=== PATIENT | female | born 1990 | race Caucasian/White ===

== ENCOUNTER → 2020-05-31 10:56 | Outpatient (CLI) | payer OTHER, SELFPAY ==
--- NOTE | ~2020-05-31 | XR_ITS ---
XR foot LT min 3V DATE: 05/31/2020 11:42 INDICATION: Left foot pain TECHNIQUE: 4 views COMPARISON: None FINDINGS: Pes planus. Plantar calcaneal enthesopathy. Os tibiale externum, normal variant. There is mild osteoarthritis at the first metatarsophalangeal joint. No fracture or dislocation, periosteal reaction or bone destruction. No erosive change is evident. IMPRESSION: Pes planus Osteoarthritis at first metatarsophalangeal joint Plantar calcaneal enthesopathy Reviewed, dictated and finalized at location A.
== END ==
PROVIDERS: PCP Family Medicine; Visit Provider Family Medicine
DX: M79.672 Pain in left foot (principal); Q66.89 Other specified congenital deformities of feet; M21.42 Flat foot [pes planus] (acquired), left foot; M19.072 Primary osteoarthritis, left ankle and foot; M77.32 Calcaneal spur, left foot
CPT/HCPCS: 73630

== ENCOUNTER 2024-09-11 10:31 | Outpatient (CLI) | payer BC, SELFPAY ==
--- NOTE | ~2024-09-11 | MR_ITS ---
EXAMINATION: MR ankle LT wo con, MR foot LT wo con DATE: 09/11/2024 12:22 INDICATION: Posterior tibial tendinitis at the left foot and ankle with chronic medial left ankle and dorsolateral forefoot pain. TECHNIQUE: 1. Magnetic resonance imaging (MRI) of the left ankle/hindfoot was performed without intravenous cont rast. Sequences included sagittal, coronal, and axial PD-weighted FSE and PD-weighted FS FSE. 2. MRI of the left fore/mid foot was performed without intravenous contrast. Sequences included sagit aleisha T1-weighted FSE, sagittal fluid sensitive FSE STIR, coronal PD-weighted FS FSE, coronal T1-weight ed FSE, axial PD-weighted FS FSE, and axial PD-weighted FSE. COMPARISON: None. FINDINGS: Medial ankle ligaments: Deep and superficial deltoid ligaments as well as the spring ligament are normal. Lateral ankle ligaments: The anterior and posterior inferior tibiofibular, anterior and posterior talofibular as well as the c alcaneofibular ligaments are normal. Tendons: Achilles, medial and lateral flexor as well as the extensor tendons of the foot/ankle are normal. Plantar fascia: Small enthesophyte at the calcaneal origin of the normal-appearing plantar aponeurosis. Bones/other: There is suggestion of pes planus although this would be more accurately assessed with weightbearing radiographs. There is marrow edema at both sides of the synchondrosis between the navicula and a smal l type II os naviculare. There is intraosseous ganglion cyst at the inferior neck of the talus near t he insertion of the intraosseous talocalcaneal ligament. There is increased fluid signal loss of T1 f at signal at the sinus Tarsi consistent with sinus Tarsi syndrome. Bone marrow signal is otherwise no rmal throughout. No fracture or pathologic marrow replacing process. Joint spaces appear normal throu ghout. Lisfranc ligament complex and the collateral ligament complex at the metatarsophalangeal and i nterphalangeal joints are normal. Fluid: Small joint effusion extending into the medial recess of the talonavicular joint and the lateral rece ss of the calcaneocuboid joint. No tenosynovitis, bursitis or other abnormal fluid collections. IMPRESSION: 1. 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 2. 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 2. Small tricompartment joint effusion with fluid distending the recess of the margins of the talonav icular and calcaneocuboid joints. Reviewed, dictated and finalized at location A. SERVICE DISPATCHER IMPRESSION: 1. 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 2. Accessory navicular syndrome with marrow edema at both sides of the synchond rosis between the navicular and a type II os naviculare. 2. Small tricompartment joint effusion with fluid distending the recess of the margins of the talonavicular and calcaneocuboid joints.
== END 2024-09-11 10:32 | disposition home or self-care (01) ==
LOC: MICIMG 10:33
PROVIDERS: Visit Provider Podiatrist Foot & Ankle Surgery
DX: M76.822 Posterior tibial tendinitis, left leg (principal); M25.472 Effusion, left ankle
CPT/HCPCS: 73718; 73721